=== PATIENT | female | born 1990 | race Caucasian/White ===

== ENCOUNTER 2017-09-29 17:30 | Emergency (ER) | payer MEDICAID, OTHER ==
[2017-09-29] MEDS: SOD CHLORIDE 0.9% 1,000 ML IV (19:43)
[2017-09-29] MEDS: ONDANSETRON 4 MG INJ IV (19:43)
[2017-09-29] MEDS: morphine 4 MG/ML VIAL IV (19:44)
[2017-09-29 20:08] LABS: ADD MAN DIFF? NO
[2017-09-29 20:09] LABS: ADD UMIC YES; UR ASCORBIC ACID NEGATIVE (NEGATIVE); UR BILIRUBIN (Dip) NEGATIVE (NEGATIVE); UR BLOOD (Dip) NEGATIVE (NEGATIVE); UR CLARITY CLEAR (CLEAR); UR COLOR YELLOW (YELLOW); UR GLUCOSE (Dip) NEGATIVE (NEGATIVE); UR KETONES (Dip) NEGATIVE (NEGATIVE); UR LEUKOCYTE ESTERASE (Dip) TRACE Leu/ul (NEGATIVE); UR NITRITE (Dip) NEGATIVE (NEGATIVE); UR RBC 1 /HPF (0-5); UR SPECIFIC GRAVITY (Dip) 1.009 (1.003-1.030); UR TOTAL PROTEIN (Dip) NEGATIVE (NEGATIVE); UR UROBILINOGEN (Dip) NEGATIVE (NEGATIVE); UR WBC 0 /HPF (0-5)
[2017-09-29 20:10] LABS: BASOPHILS % 0.4 % (0.0-2.0); EOSINOPHILS # 0.1 10^3/ul (0.0-0.5); EOSINOPHILS % 0.7 % (0.0-7.0); HEMOGLOBIN 14.1 g/dl (12.0-16.0); LYMPHOCYTES # 1.7 10^3/ul (0.8-2.9); MEAN CORPUSCULAR HEMOGLOBIN 29.4 pg (29.0-33.0); MEAN CORPUSCULAR HGB CONC 32.8 g/dl (32.0-37.0); MEAN CORPUSCULAR VOLUME 89.8 fl (82.0-101.0); MEAN PLATELET VOLUME 11.4 fl (7.4-10.4); MONOCYTE # 0.8 10^3/ul (0.3-0.9); MONOCYTES % 7.1 % (0.0-11.0); NEUTROPHIL # 8.1 10^3/ul (1.6-7.5); NEUTROPHILS % 75.3 % (39.0-77.0); PLATELET COUNT 205 10^3/UL (140-415); RED BLOOD COUNT 4.79 10^6/ul (4.20-5.40); RED CELL DISTRIBUTION WIDTH 13.7 % (11.5-14.5)
[2017-09-29 20:10] LABS: WHITE BLOOD COUNT 10.7 10^3/ul (4.8-10.8)
[2017-09-29 20:34] LABS: ALANINE AMINOTRANSFERASE 32 IU/L (13-69); ALBUMIN 4.8 g/dl (3.3-4.9); ALBUMIN/GLOBULIN RATIO 1.41; ALKALINE PHOSPHATASE 54 IU/L (42-121); ANION GAP 17 (8-16); ASPARTATE AMINO TRANSFERASE 26 IU/L (15-46); BILIRUBIN,INDIRECT 1.8 mg/dl (0-1.1); BILIRUBIN,TOTAL 1.8 mg/dl (0.2-1.3); BLOOD UREA NITROGEN 13 mg/dl (7-20); CALCIUM 9.4 mg/dl (8.4-10.2); CARBON DIOXIDE 27 mmol/L (21-31); CHLORIDE 100 mmol/L (97-110); CREATININE 0.78 mg/dl (0.44-1.00); GLUCOSE 110 mg/dl (70-220); LIPASE 66 U/L (23-300); SODIUM 140 mmol/L (135-144); TOTAL PROTEIN 8.2 g/dl (6.1-8.1)
[2017-09-29 20:44] LABS: TROPONIN-I < 0.012 ng/ml (0.000-0.120)
== END 2017-09-29 22:00 | disposition home or self-care (01) ==
LOC: FTE 17:30
DX: K80.20 Calculus of gallbladder without cholecystitis without obstruction (principal)
CPT/HCPCS: 36415; 71045; 76705; 80053; 81001; 81025; 83690; 84484; 85025; 93005; 96374; 96375; 99285-25

== ENCOUNTER 2018-01-02 17:19 | Emergency (ER) | payer OTHER, MEDICAID ==
[2018-01-02] MEDS: ONDANSETRON 4 MG INJ IV (19:46)
[2018-01-02] MEDS: SOD CHLORIDE 0.9% 1,000 ML IV (19:46)
[2018-01-02] MEDS: KETOROLAC 30 MG INJ IV (19:48)
[2018-01-02 19:54] LABS: HEMATOCRIT 42.7 % (37.0-47.0); HEMOGLOBIN 13.7 g/dl (12.0-16.0); MEAN CORPUSCULAR HGB CONC 32.1 g/dl (32.0-37.0); MEAN CORPUSCULAR VOLUME 90.5 fl (82.0-101.0); MEAN PLATELET VOLUME 11.3 fl (7.4-10.4); PLATELET COUNT 182 10^3/UL (140-415); RED BLOOD COUNT 4.72 10^6/ul (4.20-5.40)
[2018-01-02 19:54] LABS: WHITE BLOOD COUNT 5.3 10^3/ul (4.8-10.8)
[2018-01-02 20:00] LABS: ADD MAN DIFF? YES
[2018-01-02 20:01] LABS: ADD UMIC NO; UR ASCORBIC ACID NEGATIVE (NEGATIVE); UR BILIRUBIN (Dip) NEGATIVE (NEGATIVE); UR BLOOD (Dip) NEGATIVE (NEGATIVE); UR CLARITY CLEAR (CLEAR); UR COLOR YELLOW (YELLOW); UR GLUCOSE (Dip) NEGATIVE (NEGATIVE); UR KETONES (Dip) NEGATIVE (NEGATIVE); UR LEUKOCYTE ESTERASE (Dip) NEGATIVE Leu/ul (NEGATIVE); UR NITRITE (Dip) NEGATIVE (NEGATIVE); UR SPECIFIC GRAVITY (Dip) 1.006 (1.003-1.030); UR TOTAL PROTEIN (Dip) NEGATIVE (NEGATIVE); UR UROBILINOGEN (Dip) 1+ mg/dL (NEGATIVE)
[2018-01-02 20:31] LABS: ALANINE AMINOTRANSFERASE 547 IU/L (13-69); ALBUMIN 3.7 g/dl (3.3-4.9); ALBUMIN/GLOBULIN RATIO 0.92; ALKALINE PHOSPHATASE 184 IU/L (42-121); ANION GAP 13 (8-16); ASPARTATE AMINO TRANSFERASE 279 IU/L (15-46); BILIRUBIN,INDIRECT 1.6 mg/dl (0-1.1); BILIRUBIN,TOTAL 1.6 mg/dl (0.2-1.3); BLOOD UREA NITROGEN 9 mg/dl (7-20); CALCIUM 9.3 mg/dl (8.4-10.2); CARBON DIOXIDE 26 mmol/L (21-31); CHLORIDE 103 mmol/L (97-110); CREATININE 0.78 mg/dl (0.44-1.00); GLUCOSE 93 mg/dl (70-220); LIPASE 89 U/L (23-300); SODIUM 138 mmol/L (135-144); TOTAL PROTEIN 7.7 g/dl (6.1-8.1)
[2018-01-02 20:36] LABS: BAND NEUTROPHILS #M 0.1 10^3/ul (0.0-0.6); BAND NEUTROPHILS % (M) 3 % (0-4); BASOPHIL #M 0.1 10^3/ul (0.0-0.0); BASOPHILS % (M) 2 % (0-2); EOSINOPHILS % (M) 4 % (0-7); GIANT THROMBO% (M) 2 % (0-0); LYMPHOCYTES % (M) 19 % (15-51); METAMYELOCYTES %M 1 % (0-0); MONOCYTE #M 0.5 10^3/ul (0.3-0.9); MONOCYTES % (M) 11 % (0-11); PLATELET ESTIMATE NORMAL; REACTIVE LYMPHOCYTES #M 0.2 10^3/ul (0.0-0.0); REACTIVE LYMPHOCYTES% (M) 4 % (0-0); SEGMENTED NEUTROPHILS (M) % 56 % (39-77); SMUDGE%M 1 % (0-0)
== END 2018-01-02 21:31 | disposition home or self-care (01) ==
LOC: FTE 17:19
DX: K80.50 Calculus of bile duct without cholangitis or cholecystitis without obstruction (principal); R74.0 Nonspecific elevation of levels of transaminase and lactic acid dehydrogenase [LDH]
CPT/HCPCS: 36415; 76705; 80053; 81003; 81025; 83690; 85025; 96361; 96374; 96375; 99285-25

== ENCOUNTER 2018-03-07 09:24 | Inpatient (IN) | payer OTHER ==
[2018-03-07] MEDS: SOD CHLORIDE 0.9% 1,000 ML IV (10:25)
[2018-03-07] MEDS: ONDANSETRON 4 MG INJ IV (10:25)
[2018-03-07] MEDS: morphine 4 MG/ML VIAL IV (10:26)
[2018-03-07 10:33] LABS: ADD MAN DIFF? NO
[2018-03-07 10:39] LABS: BASOPHILS % 0.2 % (0.0-2.0); EOSINOPHILS # 0.1 10^3/ul (0.0-0.5); EOSINOPHILS % 0.5 % (0.0-7.0); HEMOGLOBIN 14.1 g/dl (12.0-16.0); LYMPHOCYTES % 8.2 % (15.0-51.0); MEAN CORPUSCULAR HEMOGLOBIN 29.2 pg (29.0-33.0); MEAN CORPUSCULAR HGB CONC 32.8 g/dl (32.0-37.0); MEAN PLATELET VOLUME 10.8 fl (7.4-10.4); MONOCYTE # 0.9 10^3/ul (0.3-0.9); MONOCYTES % 7.7 % (0.0-11.0); PLATELET COUNT 216 10^3/UL (140-415); RED BLOOD COUNT 4.83 10^6/ul (4.20-5.40); RED CELL DISTRIBUTION WIDTH 13.7 % (11.5-14.5)
[2018-03-07 10:56] LABS: ADD UMIC YES; UR ASCORBIC ACID NEGATIVE (NEGATIVE); UR BACTERIA FEW /HPF (NONE SEEN); UR BILIRUBIN (Dip) 2+ mg/dL (NEGATIVE); UR BLOOD (Dip) 1+ mg/dL (NEGATIVE); UR CLARITY CLEAR (CLEAR); UR COLOR AMBER (YELLOW); UR GLUCOSE (Dip) NEGATIVE (NEGATIVE); UR KETONES (Dip) NEGATIVE (NEGATIVE); UR LEUKOCYTE ESTERASE (Dip) TRACE Leu/ul (NEGATIVE); UR NITRITE (Dip) NEGATIVE (NEGATIVE); UR RBC 1 /HPF (0-5); UR SPECIFIC GRAVITY (Dip) 1.018 (1.003-1.030); UR SQUAMOUS EPITHELIAL CELL FEW /HPF (FEW); UR TOTAL PROTEIN (Dip) 1+ mg/dl (NEGATIVE); UR UROBILINOGEN (Dip) 2+ mg/dL (NEGATIVE); UR WBC 3 /HPF (0-5)
[2018-03-07 11:03] LABS: AMYLASE 57 U/L (11-123)
[2018-03-07 11:05] LABS: ALANINE AMINOTRANSFERASE 755 IU/L (13-69); ALBUMIN 4.2 g/dl (3.3-4.9); ALKALINE PHOSPHATASE 206 IU/L (42-121); ANION GAP 12 (5-13); ASPARTATE AMINO TRANSFERASE 746 IU/L (15-46); BILIRUBIN,INDIRECT 4.8 mg/dl (0-1.1); BILIRUBIN,TOTAL 6.9 mg/dl (0.2-1.3); BLOOD UREA NITROGEN 8 mg/dl (7-20); CALCIUM 9.2 mg/dl (8.4-10.2); CARBON DIOXIDE 28 mmol/L (21-31); CHLORIDE 103 mmol/L (97-110); CREATININE 0.79 mg/dl (0.44-1.00); Estimated GFR > 60 mL/min (>60); GLUCOSE 97 mg/dl (70-220); LIPASE 63 U/L (23-300); SODIUM 143 mmol/L (135-144); TOTAL PROTEIN 8.4 g/dl (6.1-8.1)
[2018-03-07] MEDS ORDERED: ACETAMINOPHEN 325 MG TAB PO (12:00)
[2018-03-07] MEDS ORDERED: ONDANSETRON 4 MG INJ IV ×2 (12:00→15:00)
[2018-03-07] MEDS: AMPICILLIN/SULB 3 GM/NS (PMX) 100 ML IVPB (14:21)
[2018-03-07] MEDS: ENOXAPARIN 30 MG/0.3 ML SYG SC (15:00)
[2018-03-07] MEDS: PIPER-TAZO 3.375 GM IV (PMX) 100 ML IVPB ×2 (16:08→20:33)
[2018-03-07] MEDS: D5W-0.45 NACL + KCL 20 MEQ 1,000 ML IV (16:08)
[2018-03-07] MEDS: morphine 2 MG INJ IV (17:33)
[2018-03-08] MEDS: D5W-0.45 NACL + KCL 20 MEQ 1,000 ML IV ×3 (00:37→18:41)
[2018-03-08 05:25] LABS: ADD MAN DIFF? NO
[2018-03-08 05:34] LABS: BASOPHILS % 0.4 % (0.0-2.0); EOSINOPHILS # 0.2 10^3/ul (0.0-0.5); EOSINOPHILS % 3.3 % (0.0-7.0); HEMATOCRIT 35.8 % (37.0-47.0); HEMOGLOBIN 11.8 g/dl (12.0-16.0); LYMPHOCYTES # 1.2 10^3/ul (0.8-2.9); LYMPHOCYTES % 16.2 % (15.0-51.0); MEAN CORPUSCULAR HEMOGLOBIN 29.4 pg (29.0-33.0); MEAN CORPUSCULAR VOLUME 89.1 fl (82.0-101.0); MEAN PLATELET VOLUME 11.3 fl (7.4-10.4); MONOCYTE # 0.9 10^3/ul (0.3-0.9); MONOCYTES % 12.9 % (0.0-11.0); NEUTROPHIL # 4.9 10^3/ul (1.6-7.5); NEUTROPHILS % 66.9 % (39.0-77.0); PLATELET COUNT 170 10^3/UL (140-415); RED BLOOD COUNT 4.02 10^6/ul (4.20-5.40); RED CELL DISTRIBUTION WIDTH 14.1 % (11.5-14.5)
[2018-03-08 05:34] LABS: WHITE BLOOD COUNT 7.3 10^3/ul (4.8-10.8)
[2018-03-08] MEDS: PIPER-TAZO 3.375 GM IV (PMX) 100 ML IVPB ×5 (05:39→23:39)
[2018-03-08] MEDS: PANTOPRAZOLE 40 MG INJ IV (05:39)
[2018-03-08 05:55] LABS: ALANINE AMINOTRANSFERASE 456 IU/L (13-69); ALBUMIN 3.4 g/dl (3.3-4.9); ALBUMIN/GLOBULIN RATIO 0.97; ALKALINE PHOSPHATASE 164 IU/L (42-121); ANION GAP 9 (5-13); ASPARTATE AMINO TRANSFERASE 278 IU/L (15-46); BILIRUBIN,INDIRECT 2.8 mg/dl (0-1.1); BILIRUBIN,TOTAL 3.7 mg/dl (0.2-1.3); BLOOD UREA NITROGEN 8 mg/dl (7-20); CALCIUM 8.7 mg/dl (8.4-10.2); CARBON DIOXIDE 26 mmol/L (21-31); CHLORIDE 107 mmol/L (97-110); CREATININE 0.86 mg/dl (0.44-1.00); Estimated GFR > 60 mL/min (>60); GLUCOSE 102 mg/dl (70-220); SODIUM 142 mmol/L (135-144); TOTAL PROTEIN 6.9 g/dl (6.1-8.1)
[2018-03-08] MEDS ORDERED: CEFAZOLIN 1 GM INJ (07:00)
[2018-03-08] MEDS: morphine 2 MG INJ IV ×2 (08:53→22:45)
[2018-03-08] MEDS: INFLUENZA VIRUS VACCINE 0.5 ML (DISPENSING) IM* (09:00)
[2018-03-08] MEDS: ENOXAPARIN 30 MG/0.3 ML SYG SC (09:00)
[2018-03-08] MEDS ORDERED: VITAMIN A & D 5 GM OINT PACKET TOP (10:56)
[2018-03-08 11:02] LABS: INR 1.26; PT RATIO 1.3
[2018-03-08] MEDS ORDERED: LIDOCAINE 100 MG SYRINGE (16:10)
[2018-03-08] MEDS ORDERED: MIDAZOLAM 1 MG/ML 2 ML INJ ×2 (16:10→16:41)
[2018-03-08] MEDS ORDERED: ROCURONIUM 50 MG INJ (16:10)
[2018-03-08] MEDS ORDERED: ONDANSETRON 4 MG INJ (16:10)
[2018-03-08] MEDS ORDERED: PROPOFOL 100 ML (16:10)
[2018-03-08] MEDS ORDERED: FENTAnyl 50 MCG/ML VIAL (16:10)
[2018-03-08] MEDS ORDERED: DEXAMETHASONE 4 MG/ML 1 ML INJ (16:11)
[2018-03-08] MEDS ORDERED: SUGAMMADEX SODIUM 200 MG/2 ML VIAL IV ×2 (16:11→16:41)
[2018-03-08] MEDS ORDERED: IOHEXOL 300MG/ML 30 ML BTL (16:18)
[2018-03-08] MEDS ORDERED: INDOMETHACIN 50 MG SUPP PR ×2 (16:19→16:20)
[2018-03-08] MEDS ORDERED: HYDROmorphONE 1 MG/5 ML IV SYRINGE IV ×2 (17:30)
[2018-03-08] MEDS ORDERED: METOCLOPRAMIDE 10 MG INJ IV (17:30)
[2018-03-08] MEDS ORDERED: MEPERIDINE 25 MG INJ IV (17:30)
[2018-03-08] MEDS ORDERED: ONDANSETRON 4 MG INJ IV (17:30)
[2018-03-08] MEDS ORDERED: LABETALOL HCL 20MG INJ IV (17:30)
[2018-03-08] MEDS ORDERED: FENTAnyl 50 MCG/ML VIAL IV ×2 (17:30)
[2018-03-08] MEDS ORDERED: hydrALAzine 20 MG INJ IV (17:30)
[2018-03-08] MEDS: INDOMETHACIN 50 MG SUPP PR (19:25)
[2018-03-09 05:23] LABS: ADD MAN DIFF? NO
[2018-03-09 05:27] LABS: WHITE BLOOD COUNT 5.9 10^3/ul (4.8-10.8)
[2018-03-09 05:27] LABS: BASOPHILS % 0.2 % (0.0-2.0); HEMATOCRIT 37.1 % (37.0-47.0); HEMOGLOBIN 12.3 g/dl (12.0-16.0); LYMPHOCYTES # 0.7 10^3/ul (0.8-2.9); MEAN CORPUSCULAR HEMOGLOBIN 29.4 pg (29.0-33.0); MEAN CORPUSCULAR HGB CONC 33.2 g/dl (32.0-37.0); MEAN CORPUSCULAR VOLUME 88.8 fl (82.0-101.0); MEAN PLATELET VOLUME 11.5 fl (7.4-10.4); MONOCYTE # 0.2 10^3/ul (0.3-0.9); MONOCYTES % 3.4 % (0.0-11.0); NEUTROPHILS % 84.1 % (39.0-77.0); PLATELET COUNT 197 10^3/UL (140-415); RED BLOOD COUNT 4.18 10^6/ul (4.20-5.40); RED CELL DISTRIBUTION WIDTH 13.8 % (11.5-14.5)
[2018-03-09] MEDS: D5W-0.45 NACL + KCL 20 MEQ 1,000 ML IV ×3 (05:33→22:25)
[2018-03-09] MEDS: PIPER-TAZO 3.375 GM IV (PMX) 100 ML IVPB ×4 (06:11→23:32)
[2018-03-09] MEDS: PANTOPRAZOLE 40 MG INJ IV (06:15)
[2018-03-09 06:26] LABS: ALANINE AMINOTRANSFERASE 311 IU/L (13-69); ALBUMIN 3.6 g/dl (3.3-4.9); ALBUMIN/GLOBULIN RATIO 1.09; ALKALINE PHOSPHATASE 169 IU/L (42-121); ANION GAP 10 (5-13); ASPARTATE AMINO TRANSFERASE 96 IU/L (15-46); BILIRUBIN,INDIRECT 1.3 mg/dl (0-1.1); BILIRUBIN,TOTAL 1.3 mg/dl (0.2-1.3); BLOOD UREA NITROGEN 6 mg/dl (7-20); CALCIUM 8.9 mg/dl (8.4-10.2); CARBON DIOXIDE 24 mmol/L (21-31); CHLORIDE 106 mmol/L (97-110); CREATININE 0.71 mg/dl (0.44-1.00); Estimated GFR > 60 mL/min (>60); GLUCOSE 135 mg/dl (70-220); POTASSIUM 4.1 mmol/L (3.5-5.1); SODIUM 140 mmol/L (135-144); TOTAL PROTEIN 6.9 g/dl (6.1-8.1)
[2018-03-09] MEDS ORDERED: LIDOCAINE 2% (SDV) 5 ML INJ (07:00)
[2018-03-09] MEDS ORDERED: GLYCOPYRROLATE 0.4 MG INJ ×2 (07:00→20:14)
[2018-03-09] MEDS ORDERED: NEOSTIGMINE 3 MG/3 ML SYRINGE ×2 (07:00→20:14)
[2018-03-09] MEDS: morphine 2 MG INJ IV ×2 (07:55→23:32)
[2018-03-09] MEDS: ENOXAPARIN 30 MG/0.3 ML SYG SC (09:00)
[2018-03-09] MEDS ORDERED: PROPOFOL 100 ML (18:40)
[2018-03-09] MEDS ORDERED: ROCURONIUM 50 MG INJ (18:43)
[2018-03-09] MEDS ORDERED: DEXAMETHASONE 4 MG/ML 1 ML INJ (18:56)
[2018-03-09] MEDS ORDERED: ONDANSETRON 4 MG INJ (18:57)
[2018-03-09] MEDS: BUPIVACAINE 0.25%/EPI (MDV) 50 ML VIAL INJ (19:06)
[2018-03-09] MEDS ORDERED: KETOROLAC 30 MG INJ (19:10)
[2018-03-09] MEDS ORDERED: ROPIVACAINE 0.5 % 30 ML VIAL (19:59)
[2018-03-09] MEDS ORDERED: ACETAMINOPHEN 325 MG TAB PO (20:00)
[2018-03-09] MEDS ORDERED: ONDANSETRON 4 MG INJ IV ×2 (20:00→20:30)
[2018-03-09] MEDS ORDERED: HYDROCODONE/APAP (5/325) TAB PO (20:00)
[2018-03-09] MEDS ORDERED: MEPERIDINE 25 MG INJ (20:22)
[2018-03-09] MEDS ORDERED: EPHEDrine SULFATE 50 MG/5 ML SYG IV (20:30)
[2018-03-09] MEDS ORDERED: FENTAnyl 50 MCG/ML VIAL IV ×3 (20:30)
[2018-03-09] MEDS ORDERED: OXYCODONE/ACETAMINOPHEN (5/325) TAB PO (20:30)
[2018-03-09] MEDS ORDERED: hydrALAzine 20 MG INJ IV (20:30)
[2018-03-09] MEDS ORDERED: LABETALOL HCL 20MG INJ IV (20:30)
[2018-03-09] MEDS ORDERED: MIDAZOLAM 1 MG/ML 2 ML INJ IV (20:30)
[2018-03-09] MEDS ORDERED: DIPHENHYDRAMINE 50 MG INJ IV (20:30)
[2018-03-09] MEDS ORDERED: ALBUTEROL 0.083% (NEB) 2.5 MG/3 ML AMP HHN (20:30)
[2018-03-09] MEDS ORDERED: KETOROLAC 30 MG INJ IV (20:30)
[2018-03-09] MEDS ORDERED: HYDROmorphONE 1 MG/5 ML IV SYRINGE IV ×2 (20:30)
[2018-03-09] MEDS: MEPERIDINE 25 MG INJ IV (20:39)
[2018-03-09] MEDS: HYDROmorphONE 1 MG/5 ML IV SYRINGE IV (20:39)
[2018-03-09] MEDS: DOCUSATE SODIUM 100 MG CAP PO (21:58)
[2018-03-09] MEDS: OXYCODONE/ACETAMINOPHEN (5/325) TAB PO (22:18)
[2018-03-10] MEDS: morphine 2 MG INJ IV ×4 (03:58→17:32)
[2018-03-10 05:17] LABS: ADD MAN DIFF? NO
[2018-03-10 05:25] LABS: WHITE BLOOD COUNT 9.4 10^3/ul (4.8-10.8)
[2018-03-10 05:26] LABS: HEMATOCRIT 35.9 % (37.0-47.0); HEMOGLOBIN 11.8 g/dl (12.0-16.0); LYMPHOCYTES # 0.8 10^3/ul (0.8-2.9); LYMPHOCYTES % 8.8 % (15.0-51.0); MEAN CORPUSCULAR HEMOGLOBIN 29.5 pg (29.0-33.0); MEAN CORPUSCULAR HGB CONC 32.9 g/dl (32.0-37.0); MEAN CORPUSCULAR VOLUME 89.8 fl (82.0-101.0); MEAN PLATELET VOLUME 12.1 fl (7.4-10.4); MONOCYTE # 0.4 10^3/ul (0.3-0.9); MONOCYTES % 3.9 % (0.0-11.0); NEUTROPHIL # 8.2 10^3/ul (1.6-7.5); PLATELET COUNT 212 10^3/UL (140-415)
[2018-03-10 05:45] LABS: ALANINE AMINOTRANSFERASE 227 IU/L (13-69); ALBUMIN 3.7 g/dl (3.3-4.9); ALBUMIN/GLOBULIN RATIO 1.05; ALKALINE PHOSPHATASE 135 IU/L (42-121); ANION GAP 12 (5-13); ASPARTATE AMINO TRANSFERASE 59 IU/L (15-46); BILIRUBIN,INDIRECT 1.3 mg/dl (0-1.1); BILIRUBIN,TOTAL 1.3 mg/dl (0.2-1.3); BLOOD UREA NITROGEN 7 mg/dl (7-20); CARBON DIOXIDE 24 mmol/L (21-31); CHLORIDE 108 mmol/L (97-110); CREATININE 0.71 mg/dl (0.44-1.00); Estimated GFR > 60 mL/min (>60); GLUCOSE 143 mg/dl (70-220); POTASSIUM 4.7 mmol/L (3.5-5.1); SODIUM 144 mmol/L (135-144); TOTAL PROTEIN 7.2 g/dl (6.1-8.1)
[2018-03-10] MEDS: PIPER-TAZO 3.375 GM IV (PMX) 100 ML IVPB ×4 (06:24→23:16)
[2018-03-10] MEDS: PANTOPRAZOLE 40 MG INJ IV (06:24)
[2018-03-10] MEDS: D5W-0.45 NACL + KCL 20 MEQ 1,000 ML IV (10:00)
[2018-03-10] MEDS: DOCUSATE SODIUM 100 MG CAP PO ×2 (11:58→21:03)
[2018-03-10] MEDS: CEPASTAT LOZENGE MT (23:15)
[2018-03-11] MEDS: morphine 2 MG INJ IV (03:39)
[2018-03-11 05:06] LABS: ADD MAN DIFF? NO
[2018-03-11 05:08] LABS: BASOPHILS % 0.3 % (0.0-2.0); EOSINOPHILS % 0.5 % (0.0-7.0); HEMATOCRIT 33.3 % (37.0-47.0); HEMOGLOBIN 10.6 g/dl (12.0-16.0); LYMPHOCYTES # 2.8 10^3/ul (0.8-2.9); LYMPHOCYTES % 48.1 % (15.0-51.0); MEAN CORPUSCULAR HGB CONC 31.8 g/dl (32.0-37.0); MEAN PLATELET VOLUME 11.7 fl (7.4-10.4); MONOCYTE # 0.6 10^3/ul (0.3-0.9); MONOCYTES % 10.8 % (0.0-11.0); NEUTROPHIL # 2.3 10^3/ul (1.6-7.5); NEUTROPHILS % 39.8 % (39.0-77.0); PLATELET COUNT 193 10^3/UL (140-415); RED BLOOD COUNT 3.66 10^6/ul (4.20-5.40); RED CELL DISTRIBUTION WIDTH 14.3 % (11.5-14.5)
[2018-03-11 05:08] LABS: WHITE BLOOD COUNT 5.9 10^3/ul (4.8-10.8)
[2018-03-11 05:38] LABS: ALANINE AMINOTRANSFERASE 146 IU/L (13-69); ALBUMIN 2.9 g/dl (3.3-4.9); ALKALINE PHOSPHATASE 95 IU/L (42-121); ANION GAP 5 (5-13); ASPARTATE AMINO TRANSFERASE 30 IU/L (15-46); BILIRUBIN,INDIRECT 1.1 mg/dl (0-1.1); BILIRUBIN,TOTAL 1.1 mg/dl (0.2-1.3); BLOOD UREA NITROGEN 10 mg/dl (7-20); CALCIUM 8.6 mg/dl (8.4-10.2); CARBON DIOXIDE 30 mmol/L (21-31); CHLORIDE 106 mmol/L (97-110); CREATININE 0.92 mg/dl (0.44-1.00); Estimated GFR > 60 mL/min (>60); GLUCOSE 94 mg/dl (70-220); POTASSIUM 4.2 mmol/L (3.5-5.1); SODIUM 141 mmol/L (135-144); TOTAL PROTEIN 5.8 g/dl (6.1-8.1)
[2018-03-11] MEDS: PANTOPRAZOLE 40 MG INJ IV (05:57)
[2018-03-11] MEDS: PIPER-TAZO 3.375 GM IV (PMX) 100 ML IVPB ×2 (05:57→12:43)
[2018-03-11] MEDS: DOCUSATE SODIUM 100 MG CAP PO (09:48)
[2018-03-11] MEDS: HYDROCODONE/APAP (5/325) TAB PO (09:50)
== END 2018-03-11 15:10 | disposition home or self-care (01) | DRG 418 ==
LOC: E/R 09:24 → MS1 13:37
PROC: 0FC98ZZ Extirpation of Matter from Common Bile Duct, Via Natural or Artificial Opening Endoscopic (ICD-10-PCS; principal; 2018-03-08 16:30)
PROC: 0FT44ZZ Resection of Gallbladder, Percutaneous Endoscopic Approach (ICD-10-PCS; 2018-03-08 16:46)
DX: K80.00 Calculus of gallbladder with acute cholecystitis without obstruction (principal); R17 Unspecified jaundice
CPT/HCPCS: 74181; 74330; 76705; 80053; 81001; 81025; 82150; 83690; 85025; 85610; 87086; 88304; 90686; 96374; 96375; 99285-25